=== PATIENT | male | born 1990 | race Caucasian/White ===

== ENCOUNTER 2024-07-05 22:51 | Emergency (ER) | payer SELFPAY ==
[~2024-07-05] VITALS: Ht 165.1 cm; Wt 116.0 kg
[2024-07-05 22:54] VITALS: O2SAT 97
[2024-07-05] MEDS: BACITRACIN ZINC OINT UDPKT TOP ONE (23:29)
[2024-07-05] MEDS: LIDOCAINE HCL/PF 1% 10 MG/ML 5ML VIAL INFIL ONE (23:29)
[2024-07-06 00:14] VITALS: BP 149/97; PULSE 95; RESP 18; TEMP 37.1; O2SAT 97
== END 2024-07-06 00:15 | disposition home or self-care (01) ==
LOC: ER 22:51
DX: S61.210A Laceration without foreign body of right index finger without damage to nail, initial encounter (principal); W26.9XXA Contact with unspecified sharp object(s), initial encounter; Y93.89 Activity, other specified; Y92.89 Other specified places as the place of occurrence of the external cause; Y99.8 Other external cause status
CPT/HCPCS: 99282; 12002; J2003